=== PATIENT | female | born 1955 | race Caucasian/White ===

== ENCOUNTER → 2022-05-20 | Outpatient (CLI) | payer OTHER | LOC: EXRD 10:33 | DX: R22.32 Localized swelling, mass and lump, left upper limb (principal) | CPT/HCPCS: 76882 ==

== ENCOUNTER → 2022-06-24 | Outpatient (CLI) | payer MEDICARE, OTHER | LOC: EMI 06-10 10:00 → MRI 10:58 | DX: R22.32 Localized swelling, mass and lump, left upper limb (principal) | CPT/HCPCS: 73220; A9577 ==